=== PATIENT | male | born 1945 | race Caucasian/White ===

== ENCOUNTER 2018-11-10 11:30 | Observation (INO) | payer OTHER ==
[2018-11-10 12:00] LABS: PLATELET COUNT 199 10^3/uL (150-400)
--- NOTE | 2018-11-10 12:16 | EDPHY ---
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 Over the past 24 hr, he has had more palpitations than usual. He had a couple episodes of dizziness and felt like he might faint. Just prior to arrival he stood up and was walking when he became dizzy and then had a syncopal episode. He fell forward and struck his face on the floor. Onset of epistaxis after the fall. He does not recall if he had palpitations prior to the syncopal episode. He denies headache, neck pain or other injuries. REVIEW OF SYSTEMS: complete 10 point ROS reviewed and is negative except for the noted elements in the HPI - Personal History Current Tetanus Diphtheria and Acellular Pertussis (TDAP): No - Medical/Surgical History Hx Asthma: No Hx Chronic Respiratory Disease: No Hx Diabetes: No Hx Cardiac Disease: No Hx Renal Disease: No Hx Cirrhosis: No Hx Alcoholism: No Hx HIV/AIDS: No Hx Splenectomy or Spleen Trauma: No Other PMH: Hypothyroid, kidney stone; syncopal episode r/t hypotension, surgery L knee-1969, hemrrhoid - Social History Smoking Status: Former smoker Alcohol Use: Sober Drug Use: None - Physical Exam Exam: General Appearance: Alert, pleasant Eyes: Pupils equal and round, no conjunctival pallor or injection ENT, Mouth: Dried blood on nose, 2 cm linear laceration, Mucous membranes moist Neck: Normal inspection, no midline tenderness, range of motion without pain Respiratory: No chest wall tenderness, Lungs are clear to auscultation Cardiovascular: Regular rate and rhythm Gastrointestinal: Abdomen is soft and nontender Back: No midline tenderness Neurological: A&O, nonfocal, normal gait Skin: Warm and dry Extremities: Normal inspection Psychiatric: Mood and affect normal Constitutional: Initial Vital Signs Temperature (C) 36.4 C 11/10/18 11:35 Heart Rate 82 11/10/18 11:35 Respiratory Rate 17 11/10/18 11:35 Blood Pressure 105/77 11/10/18 11:35 O2 Sat (%) 95 11/10/18 11:35 O2 Delivery Mode Room Air Allergies/Adverse Reactions: No Known Allergies Allergy (Verified 11/10/18 11:35) Home Medications: Medication Instructions Recorded Aspirin EC [Aspirin EC 81 mg (*)] 81 mg PO DAILY 11/10/18 Herbals/Supplements -Info Only 1 ea PO DAILY 11/10/18 Thyroid,Pork [Thyroid] 60 mg PO DAILY 11/10/18 Medical Decision Making - Diagnostics EKG Interpretation: EKG interpreted by me reveals normal sinus rhythm, rate 78, no ST or T segment changes. Interpretation: Normal EKG Procedures: Procedure: Laceration repair. The 2 cm laceration on the nose was anesthetized using lidocaine. The wound was irrigated, draped and explored to its base with a gloved finger. There were no deep structures involved. No foreign body palpable. The wound was repaired with 6 0 nylon. The wound repair was simple. Suture removal in 5 days , pt aware. ED Course/Re-evaluation: This patient presents with palpitations and a syncopal episode. Clinical presentation is concerning for a dysrhythmia leading to the syncopal episode. Stat EKG reveals no evidence of ischemia or dysrhythmia. lead coater revealed normal sinus rhythm throughout. I advised the patient to be admitted for further cardiac evaluation. After some discussion, the pt agrees with admission. Remained stable and asymptomatic throughout his ED stay. The hospitalist was consulted for admission. Differential Diagnosis: Differential diagnosis includes though is not limited to cardiac dysrhythmia, CVA, TIA, GI bleed, sepsis, hypoglycemia. - Data Points Laboratory Results: Laboratory Results 11/10/18 11:50 11/10/18 11:50 Medications Given: Discontinued Medications Diphtheria/Tetanus/Acell Pertussis (Boostrix) 0.5 ml IM .ONCE ONE Stop: 11/10/18 13:01 Last Admin: 11/10/18 13:15 Dose: 0.5 ml Sodium Chloride (Ns) 1,000 mls @ 0 mls/hr IV ONCE ONE; Wide Open PRN Reason: Protocol Stop: 11/10/18 12:18 Last Admin: 11/10/18 12:31 Dose: 1,000 mls Ibuprofen (Motrin) 400 mg PO Q4HRS PRN PRN Reason: Pain, Mild/Fever, Can Take PO Stop: 05/09/19 17:51 Last Admin: 11/10/18 18:21 Dose: 400 mg Lidocaine HCl (Lidocaine Hcl 1%) 0 - 300 mg SC ONCALL ONE Stop: 11/11/18 14:09 Last Admin: 11/11/18 16:04 Dose: Not Given Thyroid ([place] Thyroid) 60 mg PO DAILY VIRAJ Stop: 05/10/19 08:59 Last Admin: 11/11/18 08:43 Dose: 60 mg Point of Care Test Results: Chemistry 11/10/18 11:51 POC Troponin I 0.01 ng/mL ng/mL (0.00-0.08) Departure - Departure Disposition: [facility] Inpatient Acute Clinical Impression: Palpitations Syncope Qualifiers: Syncope type: unspecified Qualified Code(s): R55 - Syncope and collapse Facial laceration Qualifiers: Encounter type: initial encounter Qualified Code(s): S01.81XA - Laceration without foreign body of other part of head, initial encounter Condition: Fair
[2018-11-10] MEDS ORDERED: NS 1,000 ML IV ONE (12:17)
[2018-11-10] MEDS ORDERED: TDAP ADULT 0.5 ML INJ (BOOSTRIX) IM ONE (13:00)
[2018-11-10] MEDS ORDERED: ONDANSETRON DISINTEGRATING 4 MG TAB PO PRN (17:52)
[2018-11-10] MEDS ORDERED: ONDANSETRON 4 MG/2 ML VIAL IVP PRN (17:52)
[2018-11-10] MEDS ORDERED: ACETAMINOPHEN 325 MG TAB PO PRN (17:52)
[2018-11-10] MEDS ORDERED: IBUPROFEN 200 MG TAB PO PRN (17:52)
--- NOTE | 2018-11-10 18:52 | GHP ---
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. He enjoys excellent health. He had a couple of previous episode s of syncope in the past but none for a few years. Today, he was feeling a bit lightheaded and weak. He had to sit down a couple times after standing a nd then he was walking down the del real, and he had, with very little warning, had loss of consciousness and fell, landing on his face, lacerating his nose. His daughter heard a thud in the other room and went and found him. When she did, he was alert but dazed and he was brought to the emergency depart ment. He denies a history of anginal symptoms. He works out regularly. Does not have heart failure symptoms such as PND, orthopnea, or lower extremity edema. He does have palpitations, which the way he describes them, it sounds like an early beat followed by a pause. He has no family history of gee dden cardiac . He has not been resuscitated. He has never had an outpatient heart monitor. He has had a negative calcium score and a largely normal echocardiogram. He is not known to have a hea rt murmur. REVIEW OF SYSTEMS: Complete 10-point review of systems conducted, negative except as noted in the HP I. PAST MEDICAL HISTORY: Hypothyroidism, history of C diff about 3-1/2 years ago. ALLERGIES: No known drug allergies. HOME MEDICATIONS: Aspirin, thyroid. 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 Minimal alcohol. No tobacco. FAMILY HISTORY: No sudden cardiac . PHYSICAL EXAMINATION: PRESENTING VITALS: Temp 36.4, blood pressure 105/77, pulse 82, breathing 17 t imes a minute, 95% on room air. GENERAL: No acute distress. HEENT: Sclerae anicteric. Oropharynx clear. There is a well approximated laceration on his nose that has been sutured. Oropharynx is cl ear. NECK: Supple without lymphadenopathy or JVD. LUNGS: Clear to auscultation bilaterally. HEAR T: S1, S2 without murmur. ABDOMEN: Soft, nontender, nondistended. LOWER EXTREMITIES: No edema. Calves nontender. SKIN: Without rash. NEUROLOGIC: Nonfocal. LABS: Today, CBC is normal. Sodium 141, potassium 4.4, chloride 107, bicarb 27, BUN 17, creatinine 1.0, glucose 117. Point of care troponin 0.01. EKG interpreted by me shows sinus with normal axis and intervals. There are no ST or T-wave changes. It is actually unchanged from the EKG about 3-1/2 years prior. I discussed the case with Dr. Lauren Alvarado. ASSESSMENT AND PLAN: This is a 73-year-old gentle with syncope. 1. Syncope. This is a concerning story for cardiac syncope given the limited prodrome and facial in jury. I think it is likely to be bradyarrhythmia related. We will follow him on telemetry and perfo rm echocardiogram. I will cycle his troponins. 2. Question of adrenal insufficiency. He was concerned, could it be his chronic low blood pressure? We discussed how this is unlikely to be the cause of syncope and then suddenly right itself but we will check a morning cortisol. 3. Hypothyroidism. We will check a TSH. 4. Nose pain. His nose has been sutured. Sutures out in 5 days. Do not shower until Sunday [facility]. It is currently Sunday evening. 5. Prophylaxis: None for this time. Low-molecular heparin if in the hospital longer than 48 hours. DISPOSITION: Observation status. /[id number]/MODL
[2018-11-11 04:28] LABS: INR 1.06 (0.83-1.16); PROTIME(PATIENT) 13.4 SEC (12.0-15.0)
[2018-11-11] MEDS ORDERED: Herbals/Supplements -Info Only PO SCH (09:00)
[2018-11-11] MEDS ORDERED: THYROID 60 MG TAB PO SCH (09:00)
--- NOTE | 2018-11-11 11:20 | ECHO ---
[email or web address] [address] [address] Main: [phone] Echocardiography Examination Transthoracic Name: SHANNAN SEO MR#: [id number] Study Date: 11/11/2018 Study Time: 07:54 AM Date of : 1945 Age: 73 year(s) Height: 182.9 cm (72 in.) Weight: 74.84 kg (165 lb.) BSA: 1.96 m2 Gender: Male Examination: Echo Contrast: Image Quality: Adequate Rhythm: Heart Rate: BP: 100 mmHg/61 mmHg Indication: Cardiac: syncope Procedure Staff Referring Physician: [employer] Designer: Antoinette Puente [facility] Reading Physician: Katie Hall MD Requesting Provider: Ordering Physician: Alonzo Maravilla Indication: Cardiac: syncope Measurements Chambers AV/MV Label Value Normal Value Label Value Normal Value LVDd, 2D 5.5 cm (4.2cm - 5.9cm) AV PGmax 6 mmHg LVDs, 2D 3.6 cm (2.1cm - 4cm) AV PGmean 3 mmHg IVSd, 2D 0.7 cm (0.6cm - 1.1cm) AV Vmax 1.21 m/s LVPWd, 2D 0.8 cm (0.6cm - 1cm) MV E Vmax 0.54 m/s LVEF, BP 70 % (55% - 70%) MV A Vmax 0.47 m/s LVEF, 2D 61 % (54% - 74%) MV E/A 1.15 LADs, 2D 3.8 cm (3cm - 4cm) MV E/E' lateral 4.4 Additional Vessels MV E/E' septal 8.6 (0.45 - 1.25) Label Value Normal Value MV E' septal 0.06 m/s AoAsc 3.4 cm MV E' lateral 0.12 m/s AoRoot, MM 3.8 cm (2.2cm - 3.7cm) MV E/E' mean 6 MV E' mean 0.09 m/s TV/PV Label Value Normal Value RA Pressure 5 mmHg RVSP 25 mmHg TR Pmax 20 mmHg TR Vmax 2.25 m/s Patient: SHANNAN SEO Study Date: 11/11/2018 Page 1 of 3 07:54 AM Conclusions 1. The left ventricle is normal in size and systolic function. Ejection fraction is 70%. Normal wall thickness. No regional wall motion abnormalities. Normal diastolic function. 2. The right ventricle is normal in size and systolic function. 3. Normal biatrial size. 4. The aortic valve is trileaflet. There is moderate calcification of the non coronary cusp. No aortic stenosis. Mild aortic regurgitation. 5. Mild tricuspid regurgitation with normal estimated pulmonary pressure. 6. No pericardial effusion. 7. No previous echocardiogram Findings Left Ventricle: Left ventricle is normal in size. Normal global systolic left ventricular function. The ejection fraction, measured by Simpsons method, is 70 %. EF range is estimated at 65 % - 70 %. Left ventricle wall thickness is normal. There are no regional wall motion abnormalities. Left ventricular diastolic function parameters are normal. IVS: The septum is intact. Right Ventricle: Normal size right ventricle. Right ventricular systolic function is normal. Left Atrium: The left atrium is normal in size. IAS: Normal appearing atrial septum. Right Atrium: The right atrium is normal in size. Mitral Valve: Normal . Trivial mitral regurgitation. No mitral valve stenosis. Aortic Valve: Moderately calcified NCC of the aortic valve.. Mild aortic regurgitation is present. There is no aortic stenosis. The aortic valve is trileaflet. Tricuspid Valve: Tricuspid valve leaflets are normal in appearance and function. Mild tricuspid regurgitation. No tricuspid valve stenosis. Right Ventricular systolic pressure is measured at 25 mmHg. Pulmonary artery pressure normal. Pulmonic Valve: Pulmonic leaflets exhibit normal cuspal separation. Trivial pulmonic valve regurgitation is present. There is no pulmonic valve stenosis. Aorta: The aorta is normal. The aortic root size in M-mode measures 3.8 cm. The ascending aorta measures 3.4 cm. Aorta Measurements AoRoot, MM is 3.8 cm. Pulmonary Artery: The pulmonary artery morphology appears normal. IVC: The inferior vena cava is normal in size and course. Pericardium: No pericardial effusion. No pleural effusion present. Exam Details Procedure Ordered: Echo Procedure Status: Routine study Image Quality: Adequate Facility Location: Cardiac Echo 1 Patient: SHANNAN SEO Study Date: 11/11/2018 Page 2 of 3 07:54 AM (No Signature Object) Patient: SHANNAN SEO Study Date: 11/11/2018 Page 3 of 3 07:54 AM [id number]
--- NOTE | 2018-11-11 11:49 | ASMTCMCOM ---
CM Note CM Note Notes: Pts case discussed in tx rounds. Pt is a 73 y/o man admitted for syncope and palpitations. Pt will most likely d/c independent when medically stable. No therapies ordered at this time. CM available for changes. Plan: Independent Date Signed: 11/11/2018 11:43 AM Electronically Signed By:ASHLEY Bruno
[2018-11-11 12:40] VITALS: BP 107/70
--- NOTE | 2018-11-11 13:12 | CPEKG ---
Test Reason : OPEN Blood Pressure : / mmHG Vent. Rate : 072 BPM Atrial Rate : 072 BPM P-R Int : 151 ms QRS Dur : 109 ms QT Int : 410 ms P-R-T Axes : 060 005 014 degrees QTc Int : 449 ms Sinus rhythm Confirmed by Ke Gasca ([id number]) on 11/11/2018 1:11:55 PM Referred By: Chito Saleem Confirmed By:Ke Gasca
[2018-11-11] MEDS ORDERED: LIDOCAINE 1% 300 MG/30 ML SDV SC ONE (14:08)
[2018-11-11] MEDS ORDERED: LIDOCAINE 1% 300 MG/30 ML SDV ONE (15:31)
--- NOTE | 2018-11-11 15:44 | SUROPNOTE ---
[facility] Operative Report - Surgery PROCEDURE: [facility] Confirm loop recorder implantation. DATE OF PROCEDURE: 11/11/2018 DEVICE: [facility] Confirm, Reference #[id number] serial #[id number] COMPLICATIONS: None MARINE ENGINE DRIVER: Isacc Hernandez MD INDICATION AND APPROPRIATE USE CRITERIA: Syncope PROCEDURE IN DETAIL: After informed consent was obtained and n.p.o. status was confirmed, the patient was cleaned, prepped and draped in a sterile fashion. ~ 10 mL of 1% Lidocaine solution was used as local anesthetic in the left parasternal area and the skin was sharply incised with a #15 blade. Pressure was used for local homeostasis. The provided blunt dissection equipment was used to form a small tunnel underneath the skin oriented at a positive 60 degrees from a horizontal orientation. The LINQ IQ was then implanted successfully. The skin was closed with interrupted zaheer and local pressure was held to obtain hemostasis. The patient tolerated the procedure without difficulties. FINAL IMPRESSION: Successful loop recorder insertion without immediate complication. Follow up in my office in 1 week for a wound check.
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
--- NOTE | 2018-11-13 17:42 | CPEKG ---
Test Reason : OPEN Blood Pressure : / mmHG Vent. Rate : 078 BPM Atrial Rate : 080 BPM P-R Int : 137 ms QRS Dur : 106 ms QT Int : 394 ms P-R-T Axes : 069 039 053 degrees QTc Int : 449 ms Sinus rhythm Confirmed by Jagruti Alvarado ([id number]) on 11/13/2018 5:42:00 PM Referred By: Jagruti Alvarado Confirmed By:Jagruti Alvarado
== END 2018-11-11 17:07 | disposition home or self-care (01) ==
LOC: F2W 14:29
PROVIDERS: ADMIT Internal Medicine; ATTEND Internal Medicine
DX: R55 Syncope and collapse (principal); S01.21XA Laceration without foreign body of nose, initial encounter; E86.9 Volume depletion, unspecified; E03.9 Hypothyroidism, unspecified; W19.XXXA Unspecified fall, initial encounter; Z87.891 Personal history of nicotine dependence
CPT/HCPCS: 12011; 33285; 90715; 93005; 93306; C1764; G0378; 84484-ER